=== PATIENT | female | born 2000 | race Caucasian/White ===

== ENCOUNTER 2025-02-12 23:29 | Outpatient (CLI) | payer OTHER, SELFPAY ==
[2025-02-13 00:05] VITALS: BP 119/60; PULSE 72; TEMP 36.8
[2025-02-13 00:26] VITALS: BP 119/60; PULSE 72
--- NOTE | 2025-02-13 00:31 | PDOC.NST_ITS ---
Date of service: 02/13/25 Time of Service: 00:31 NST Evaluation Reason for NST Reasons for Nonstress Test: DECREASED MOVEMENT Gestational Age Gestational Age in Weeks and Days: 35 Weeks and 6Days Test and Monitor Explained Test/Monitor Explained: Test Explained, Monitor Explained and Patient Verbalized Understanding Vital Signs Blood Pressure: 119/60 Pulse: 72 Temperature: 98.2 F NST Information Date on Monitor: 02/12/25 Time on Monitor: 23:56 NST Interventions: PO Hydration NST Evaluation Patient States Movement: Present FHR Baseline: 135 Variability: Moderate 6-25 bpm Accelerations: 15x15 Decelerations: None NST Results: Reactive Note Ultrasound Done: N/A. NST Note Note: 24 yo reportedly at 36 weeks visiting from [place] (reports care at [facility]) presents for concerns surrounding decreased movement. She presents with her , Eyal. Patient reports is complicated by concerns for growth restriction as well as cerclage in place for incidentally discovered shortened cervix. Patient is in town for a wedding and she feels as though her baby's movements have been limited all day. This evening, she reports having dessert and states she became concerned when she did not feel an increase in the movement despite the sugar. She denies any other complications in this . She reports good movement as soon as the baby was placed on the monitor. She denies any bleeding, leakage of fluid, or regular contractions. Patient states she will be in town through Sunday; records request signed. Counseled on kick counts and labor precautions. She was encouraged to have a low threshold for seeking immediate medical re-evaluation if concerns worsen or additional symptoms arise. NST Reviewed and Verified by: Nery oFx
[2025-02-13 00:37] VITALS: BP 119/60; PULSE 72; TEMP 36.8
--- NOTE | 2025-02-17 17:37 | W.OBNST ---
Date of service: 02/12/25 Time of Service: 23:00 NST Evaluation Reason for NST Reasons for Nonstress Test: DECREASED MOVEMENT Gestational Age Gestational Age in Weeks and Days: 35 Weeks and 6Days Test and Monitor Explained Test/Monitor Explained: Test Explained, Monitor Explained and Patient Verbalized Understanding Vital Signs Blood Pressure: 119/60 Pulse: 72 Temperature: 98.2 F NST Information Date on Monitor: 02/12/25 Time on Monitor: 23:56 NST Interventions: PO Hydration NST Evaluation Patient States Movement: Present FHR Baseline: 135 Variability: Moderate 6-25 bpm Accelerations: 15x15 Decelerations: None NST Results: Reactive Note Ultrasound Done: N/A. NST Note NST Reviewed and Verified by: Nery Fox
[2025-02-17 17:41] VITALS: BP 119/60; PULSE 72; TEMP 36.8
== END 2025-02-13 00:47 | disposition home or self-care (01) ==
LOC: BCD 23:31 → OBS 23:51
PROVIDERS: Visit Provider Obstetrics & Gynecology
DX: O36.8131 Decreased fetal movements, third trimester, fetus 1 (principal); Z3A.35 35 weeks gestation of pregnancy
CPT/HCPCS: 59025